=== PATIENT | male | born 1975 | race Two or more races ===

== ENCOUNTER 2025-05-13 08:31 | Outpatient (CLI) | payer OTHER | END 2025-05-13 08:36 | disposition home or self-care (01) | LOC: NUCLEAR 08:31 | DX: M79.669 Pain in unspecified lower leg (principal); I87.2 Venous insufficiency (chronic) (peripheral) ==

== ENCOUNTER 2025-05-14 09:40 | Outpatient (CLI) | payer OTHER | END 2025-05-14 09:42 | disposition home or self-care (01) | LOC: NUCLEAR 09:40 | DX: M79.669 Pain in unspecified lower leg (principal); I70.201 Unspecified atherosclerosis of native arteries of extremities, right leg ==

== ENCOUNTER 2025-05-14 10:58 | Outpatient (CLI) | payer OTHER | END 2025-05-14 11:03 | disposition home or self-care (01) | LOC: RAD 10:58 | PROVIDERS: ATTEND Family Medicine | DX: M79.669 Pain in unspecified lower leg (principal) ==